=== PATIENT | female | born 2000 | race Caucasian/White ===

== ENCOUNTER 2019-11-25 20:30 | Emergency (ER) | payer OTHER, SELFPAY ==
[2019-11-25 20:32] VITALS: BP 156/102; PULSE 102; PULSE 97; RESP 18; TEMP 36.7; O2SAT 98; O2SAT 99; BMI 43.5
--- NOTE | 2019-11-25 20:37 | RAD_ITS ---
STUDY: X-RAY - LEFT KNEE REASON FOR EXAM: Female, 19 years old. FALL, PAIN TECHNIQUE: 4 view(s) of the knee. COMPARISON: None. FINDINGS: Normal visualized distal femur. Normal visualized proximal tibia and fibula. Normal proximal tibiofibular articulation. Normal medial femorotibial compartment. Normal lateral femorotibial compartment. Normal patellofemoral articulation. The soft tissue structures are unremarkable. RAD/Knee 4 or More Views IMPRESSION: Normal x-ray examination of the knee. Electronically Signed: Presley Phillips MD at 21:14 EDT , Service support ,
--- NOTE | 2019-11-25 20:44 | ED.VISSUMM ---
- ER Visit Summary Date of Service: 11/25/19 Chief Complaint: Left knee pain History of Present Illness: The patient is a 19 F van past medical history. Patient states she was playing badminton with her father in the yard. Slipped on the wet grass and may have stepped in a hole twisting her left knee think she may have hyperextended it. Complaining of pain primarily in the posterior aspect the left knee. Denies any hip, ankle or foot pain. No numbness. No prior knee history or surgery. Physical Examination: Young female complaining of pain. Vital signs are stable and afebrile. H EENT exam unremarkable. Neck nontender. Lungs clear to auscultation bilaterally. Heart regular rhythm no murmur. Abdomen soft nontender. Extremities moves all 4. Left hip, ankle and foot are nontender neurovascular intact with normal DP pulse. Normal dorsi plantar flexion. Normal touch sensation left foot. Left knee there is no swelling. No bony deformity. She has pain primarily in the proximal aspect of the left calf and the popliteal fossa. There is no gross bony deformity. Again left foot is neurovascular intact. Both upper extremities right lower extremity unremarkable. Back nontender. Neurologic exam normal. She has pain with flexion extension of left knee actively and passively. Test Results: Left knee x-ray no acute abnormality 4 views read both myself and radiologist. No acute bony abnormality. No effusion. Emergency Department Course and Treatment: Patient slipped on the wet grass and hyperextended her left knee. Has pain primarily in the posterior aspect of the popliteal fossa and the proximal calf. X-ray being obtained. She did not waiting for pain at this time. Repeat exam patient doing well at 2155. Knee was reexamined and unchanged. Exam is consistent with knee sprain. Treatment Plan: Ice and elevate. Tylenol and Motrin for pain and inflammation. Follow-up with orthopedics if not improving. Disposition: Discharge Impression: Acute left knee sprain This note was generated with [employer] dictation software. It may contain incorrect words, spelling, and punctuation that were not noted in review of the chart prior to signing ED Disposition - Plan for ED Patient: Referrals: NOT,DEFINED [NON-STAFF] -
--- NOTE | 2019-11-25 21:57 | ED.DEP ---
ED Disposition - Plan for ED Patient: Disposition: Home or Assisted Living Instructions: ED Sprain Knee Referrals: Sebastian Boyd MD [STAFF PHYSICIAN] - 1 Week if not improving Additional Instructions: Ice and elevate your knee to decrease pain and swelling. Increase activity as tolerated. Tylenol for pain and Motrin for pain and swelling. Follow-up with the orthopedic Dr. Ori Boyd if not improving. Your x-rays are normal tonight. Your exam and history are consistent with a sprained knee.
[2019-11-25 22:13] VITALS: BP 123/102; PULSE 75; RESP 16; O2SAT 99
== END 2019-11-25 22:14 | disposition home or self-care (01) ==
PROVIDERS: Emergency Provider Emergency Medicine
DX: S83.92XA Sprain of unspecified site of left knee, initial encounter (principal); X50.1XXA Overexertion from prolonged static or awkward postures, initial encounter; Y93.89 Activity, other specified; Y92.007 Garden or yard of unspecified non-institutional (private) residence as the place of occurrence of the external cause; Y99.8 Other external cause status
CPT/HCPCS: 73564; 99282

== ENCOUNTER 2019-12-03 15:54 | Emergency (ER) | payer OTHER, SELFPAY ==
[2019-12-03 15:55] VITALS: BP 153/77; PULSE 96; RESP 17; TEMP 36.7; O2SAT 95; BMI 44.4
--- NOTE | 2019-12-03 16:32 | ED.DCSUM_ITS ---
History of Present Illness Chief Complaint: Lower Extremity Injury Informant: Patient Onset: Days - 8 Context: Sudden Onset Timing: Continuous Narrative: Patient is a 19-year-old female presenting with positive DVT on ultrasound. Patient sustained a knee injury 1 week ago while playing badminton. She twisted her knee. She had persistent pain since. Patient followed up with orthopedics dilated and noncompressible PT V on the left. Patient was sent to the emergency room to get started anticoagulation she currently does not have PCP. Patient normally receives her care through [facility] she is a caution however she is currently home to secondary to COVID-19 in college is being close. Patient denies any associated shortness of breath or difficulty breathing. She denies any history of clotting or bleeding disorders. She has any family history of any either. Patient states she is had persistent left knee pain as well as pain over the lateral aspect of her left calf as well. She has associated swelling of the calf. Patient denies any other complaints at this time. She does not take any medications on a daily basis including control. Past Medical History - Allergies and Home Meds Allergies/Adverse Reactions: Allergies No Known Allergies Allergy (Verified 12/03/19 15:55) Primary Care Physician: Joy Louis DO [NON-STAFF] - Smoking Status: Never smoker Review of Systems General: Denies: Chills, Fever, Sweats Eyes: Denies: Visual changes - bilaterally, Diplopia ENT: Denies: Rhinorrhea, Sore throat Cardiovascular: Denies: Chest pain, Palpitations Respiratory: Denies: Dyspnea, Cough, Dyspnea on exertion Gastrointestinal: Denies: Abdominal pain, Nausea, Vomiting, Diarrhea, Melena, Hematochezia Genitourinary: Denies: Dysuria, Hematuria, Frequency Musculoskeletal: Reports: Swelling - left calf , Extremity Pain - left. Denies: Back pain Skin: Denies: Rash, Wounds Neurological: Denies: Headache, Weakness, Numbness Physical Exam Vital Signs/Narrative: Vital Signs Temp Pulse Resp BP Pulse Ox 12/03/19 15:55 98.1 F 96 17 153/77 H 95 Inital Vital Signs reviewed: Yes General: Well nourished, Well developed, No Acute Distress Head: Normocephalic, Atraumatic Eyes: Perrl, EOMI ENT: Moist mucous membranes, No rhinorrhea Neck: Supple, Nontender Cardiovascular: Regular rate, Regular rhythm, No murmurs Respiratory: No distress, CTA bilaterally, Chest nontender Abdomen: Soft, Nontender, Nondistended, Normal bowel sounds Back: Nontender, Normal Inspection Extremities: Tenderness, Edema, Calf Tenderness - left lateral Skin: Normal color, No rash Neurological: Alert, Oriented x3, Cranial nerves II-XII grossly intact, Normal Strength, Normal Sensation Psychological: Normal affect, Normal Mood Diagnostic/Tx/Re-eval - Medical Decision Making Patient is evaluated for positive DVT on outpatient ultrasound. She has had pain and swelling after an injury playing [employer] for the past week. Her pain does coincide with the area of her DVT. Patient be started on Eliquis. She does not have any signs or symptoms consistent with PE. Patient is counseled on signs and symptoms of PE and to return the emergency room should she develop any. She is hemodynamically stable in the emergency room. She is not hypoxic or tachycardic. As patient does not have a PCP I did speak with Dr. louis who will arrange follow-up of the next few days incoordinated her anticoagulation care. Patient is counseled on signs and symptoms requiring return to the emergency room. Patient verbalizes agreement and understand this plan. Patient discharged home in stable and improved condition. ED Disposition - Plan for ED Patient: Disposition: Home or Assisted Living Diagnosis: DVT (deep venous thrombosis) Instructions: ED DVT Prescriptions: Apixaban [Eliquis] 5 mg PO BID #70 tab Transmission Status: Received by [id number] Referrals: Joy Louis DO [NON-STAFF] - Additional Instructions: Dr Louis will call you today or tomorrow to arrange follow up. Do not take Ibuprofen while on a blood thinner. Tylenol safe to take. If you fall and hit your head, develop chest pain, shortness of breath or difficulty breathing or other severe symptoms please return to the emergency room immediately.
[2019-12-03] MEDS: APIXABAN 5 MG TABLET 10 MG PO (17:10)
== END 2019-12-03 17:18 | disposition home or self-care (01) ==
PROVIDERS: Emergency Provider Emergency Medicine
DX: I82.4Z2 Acute embolism and thrombosis of unspecified deep veins of left distal lower extremity (principal)
CPT/HCPCS: 99283

== ENCOUNTER → 2019-12-03 | Outpatient (CLI) | payer OTHER, SELFPAY ==
[2019-11-25 20:32] VITALS: BMI 43.5
--- NOTE | 2019-12-03 14:48 | VDLE_ITS ---
Reason For Study: pain Procedure LEFT Exam performed in department. GSV is normal. The exam was abbreviated due to the COVID 19 CFV is compressible, spontaneous, phasic, protocol. competent, and demonstrates normal The exam was diagnostic. augmentation. A preliminary report was called and/or faxed FV is compressible, spontaneous, phasic, to Lupe Montez NP-Amalia. competent and demonstrates normal augmentation. POP V is compressible, spontaneous, phasic, competent and demonstrates normal augmentation. T/P Trunk is compressible. LT PerV is compressible. PTV are dilated and noncompressible. Interpretation Summary Acute deep vein thrombosis is noted in the left posterior tibial vein. The remainder of the left lower extremity deep venous system is patent and compressible. Valvular competence appears intact within the proximal deep venous system on the left . The left great saphenous vein appears patent and compressible segmentally. Ordering Physician: Lupe Montez Performed By: Nithin Souza RVT
== END | disposition home or self-care (01) ==
LOC: CVS 14:46
PROVIDERS: Referring Provider Registered Nurse; Visit Provider Registered Nurse
DX: M79.662 Pain in left lower leg (principal)
CPT/HCPCS: 93971

== ENCOUNTER → 2020-03-07 | Outpatient (CLI) | payer OTHER, SELFPAY ==
--- NOTE | 2020-03-07 10:42 | VDLE_ITS ---
Reason For Study: Leg swelling Procedure LEFT Exam performed in department. GSV is normal. Compared to 12/03/2019. CFV is compressible, spontaneous, phasic, A preliminary report was called and/or faxed competent, and demonstrates normal to Fast. augmentation. FV is compressible, spontaneous, phasic, competent and demonstrates normal augmentation. POP V is compressible, spontaneous, phasic, competent and demonstrates normal augmentation. T/P Trunk is compressible. PTV is compressible. LT PerV is compressible. Interpretation Summary Deep veins of the left lower extremity are patent and compressible segmentally. There is no evidence of left lower extremity deep vein thrombosis. Valvular competence appears intact within the proximal deep venous system on the left . The left great saphenous vein appears patent and compressible segmentally. Ordering Physician: Joy Michel Referring Physician: Joy Michel Performed By: Adriana Melo RVT and Student
== END | disposition home or self-care (01) ==
PROVIDERS: PCP Internal Medicine; Referring Provider Internal Medicine; Visit Provider Internal Medicine
DX: M79.89 Other specified soft tissue disorders (principal)
CPT/HCPCS: 93971

== ENCOUNTER 2022-08-20 09:22 | Day surgery (SDC) | payer OTHER, SELFPAY ==
--- NOTE | 2022-08-10 12:32 | HP.PCM_ITS ---
History and Physical Date of Admission: 08/20/22 HPI: The patient is a 22 year old female presenting for pre-operative visit. She is scheduled for laparoscopic left ovarian cystectomy, for left ovarian cyst or paratubal cyst on 08/20/2021. Procedure discussed along with risks, benefits and complications. Other alternatives discussed for management. Consent form signed? Yes. ? ? PAST MEDICAL HISTORY PAST MEDICAL HISTORY Diagnosis Date ? History of blood clots ? ? in left leg after knee injury and surgery ? ? PAST SURGICAL HISTORY PAST SURGICAL HISTORY Procedure Laterality Date ? ANT VESICOURETHROPEXY/URETHROPEXY SMPL ? 08/15/2000 ? [facility] ? KNEE SURGERY HX Left 09/2020 ? acl, lcl, hamstring repair ? MIRENA IUD ? 04/16/2022 ? ? ? CURRENT MEDICATIONS Current Outpatient Medications Medication Sig Dispense Refill ? SOOLANTRA 1 % APPLY A THIN LAYER TO THE FULL FACE TWICE A DAY. ? ? ? levonorgestrel (MIRENA) 20 mcg/24 hours (7 yrs) 52 mg IUD 1 Each by INTRAUTERINE route as directed. 1 Each 0 ? CENTRUM WOMEN MULTIVITAMIN GUMMY ? No current facility-administered medications for this visit. ? ? ALLERGIES: Patient has no known allergies. ? PERSONAL HISTORY: SOCIAL HISTORY Social History ? Tobacco Use ? Smoking status: Never ? Smokeless tobacco: Never Vaping Use ? Vaping Use: Never used Substance Use Topics ? Alcohol use: Yes ? Drug use: Never ? FAMILY HISTORY: FAMILY HISTORY FAMILY HISTORY Problem Relation Age of Onset ? other (pcos) Mother ? ? ? REVIEW OF SYMPTOMS: GENERAL: denies fevers or chills ENDOCRINOLOGY: has not been on steroids Cardiology : denies palpitations or chest pain Respiratory: denies SOB or cough Hematology: denies history of prolonged bleeding or easy bruising or VTE Allergy: Denies history of personal or family history of allergy to anesthesia ? PHYSICAL EXAMINATION: ? VITALS: Blood pressure 124/82, height 5' 7.25 (1.708 m), weight 298 lb (135.2 kg), last menstrual period 03/05/2022. ? GENERAL: The patient is well nourished, well hydrated in no acute distress. , The patient is oriented to time, place, and person. NECK: Supple. No lynphadenopathy, normal thyroid, no thyromegaly. LUNGS: Clear to auscultation bilaterally. no wheezes, rhonchi or rales HEART: Regular rate and rhythm, Normal heart sounds, and No murmurs or gallops ? IMPRESSION: left ovarian vs paratubal cyst ? PLAN: The risks/benefits/alternatives and personal involved for the planned left ovarian cystectomy, possible oophorectomy were reviewed with the patient. Her questions were answered to her satisfaction and she desires to proceed. Consent was signed. I reviewed with her postop instructions and expectations. ? ? I have reviewed and updated past medical and surgical history, medications and allergies Assessment & Plan Assessment/Plan (1) Left ovarian cyst:
[2022-08-20] VITALS (10 sets, daily range): BP systolic 103–132; BP diastolic 58–83; PULSE 72–104; RESP 16–18; TEMP 36.4–36.7; O2SAT 93–100; BMI 48.2
[2022-08-20 10:04] LABS: Internal QC Validated? YES +Cl - CLEAR BKGD; Pregnancy, Urine Negative Negative
[2022-08-20 10:12] LABS: Hematocrit 38.9 % (37-47); Hemoglobin 12.4 g/dL (12.0-15.0); Mean Corp Hgb Conc 31.9 g/dL (32-36); Mean Corpuscular Hgb 25.6 pg (27.0-32.0); Mean Corpuscular Volume 80.2 fL (81-99); Mean Platelet Vol. 11.1 fl (6.2-12.0); Platelet Count 365 K/mm3 (150-450); RBC Distribution Width CV 14.9 % (11.6-14.6); RBC Distribution Width SD 43.2 fl (35.1-43.9); Red Blood Count 4.85 M/mm3 (4.2-5.4); White Blood Count 7.8 K/mm3 (4.4-11.0)
[2022-08-20] MEDS: Lactated Ringers 1,000 ML 15 ML IV (10:19)
[2022-08-20] MEDS: Enoxaparin 40 MG/0.4 ML Syringe SC (10:20)
[2022-08-20] MEDS: Celecoxib 200 MG Capsule 400 MG PO (10:20)
[2022-08-20] MEDS: Acetaminophen 500 MG Tablet 1000 MG PO (10:20)
[2022-08-20] MEDS: Gabapentin 400 MG Capsule PO (10:32)
[2022-08-20 10:36] LABS: Glucose 96 mg/dL (74-106)
--- NOTE | 2022-08-20 11:05 | OV_PTH ---
PATIENT: CHELSEY MONACO LOC: [facility] – [place] U#:[id number] AGE/SX: 22/F ROOM: RE08/20/[address]: Dr. Eladia Davies MD : 2000 BED: DIS: 08/20/2022 SPEC #: [id number] RECD: 08/20/22 13:52 STATUS: MARIN RELynette #: [id number] ELLEN: 08/20/22 11:[address]: Eladia Davies DEPT: SURGICAL PATHOLOGY RECD BY: Kimberli Colon ENTERED: 08/23/22 10:35 SP TYPE: OVARY OTHR DR: No Primary Care Phys Tissues: OVARIAN CYST Procedures: Surgery Specimen Level IV HEADER OPERATION: Laparoscopic ovarian cystectomy PRE-OP DIAGNOSIS: Left ovarian cyst TISSUE SUBMITTED: Left ovarian cyst MICROSCOPIC DIAGNOSIS Left ovarian cyst, cystectomy: Consistent with paratubal cyst. See comment. CARMEN:stefan 08/24/2022 COMMENT Ovarian tissue is not identified. Case has been reviewed in consultation with Dr. Leahy who concurs with the above diagnosis. IDC:AM MICROSCOPIC DESCRIPTION Slides are reviewed. GROSS DESCRIPTION Received in fixative is one container labeled with the patient's name and designated left ovarian cyst. The specimen consists of multiple pieces of turk, congested soft tissue consisting of a portion of cyst wall measuring in aggregate 11 x 6 x 1 cm. The outer cyst wall appears smooth. The inner cyst wall is ragged and congested. The cyst wall measures 0.1 to 1 cm in thickness. Apparel Merchandiser sections are submitted in four cassettes. / SJ:rg 08/23/2022 TC:5 CPT: 55356
--- NOTE | 2022-08-20 12:26 | DCINST_ITS ---
Discharge Instructions Diet Discharge Diet: Light diet - advance as tolerated Activity Discharge Activity: May Drive (in 2-3 days when not taking pain medication) and May Shower Return to work on:: 08/23/22 May resume sexual activity in: 1 week Dressing / Incision Call your doctor if your incision/area has: Continuous Slow Oozing, Sudden Increased Bleeding and Foul Smelling Discharge Call your doctor if you observe: Fever of 101 or Higher Cleanse incision/area with: Soap & Water (Your incisions have skin glue, it can get wet. Leave it on for at least 10 days or until it falls off) Follow Up Care Test Results: Test results from this visit will be discussed in further detail at your follow- up appointment, if applicable. Discharge Plan Admission Primary Reason for Your Visit: Left ovarian cystectomy Attending Provider: Eladia Davies Primary Care Provider: Samantha Bridges Primary Discharge Orders/Prescriptions Prescriptions: New ibuprofen [ibuprofen] 600 MG tablet 600 mg PO Q6H PRN (Reason: Pain) Qty: 60 1RF oxycodone 5 MG tablet 5 mg PO Q6H PRN PRN (Reason: severe pain) 3 Days Qty: 6 0RF Continued sulfacetamide sodium (acne) 10 % suspension 1 applic TOPICAL BID Label Comments: APPLY A THIN LAYER TO THE FULL FACE IN THE MORNING AND THE T-ZONE IN THE EVENINGS Probiotic 10 billion cell Capsule 10,000 mmu cells PO DAILY ivermectin [Soolantra] 1 % cream 1 applic TOPICAL BID Label Comments: APPLY A THIN LAYER TO THE FULL FACE TWICE A DAY. Mirena 20 mcg/24 hours (8 yrs) 52 mg Intrauterine Device 20 mcg INTRAUTERINE DAILY Referrals / Follow Up: Care Physician,No Primary [Primary Care Provider] - Disposition Disposition (needs filled in before D/C Order can be placed): Home, Self Care
[2022-08-20] MEDS: Bupivacaine Mpf 0.5% 30 ML VIAL (13:30)
--- NOTE | 2022-08-20 13:43 | OP.PCM_ITS ---
Problems Associated Problem List Diagnoses (1) Postoperative pain: Report of Operation Date of Procedure: 08/20/22 Pre-Operative Diagnosis: left ovarian cyst Post-Operative Diagnosis: same Surgery/Procedure Performed:: Laparoscopic left ovarian cystectomy Description of Surgical Findings:: Enlarged left simple cyst Surgeon: Eladia Davies vehicle service attendant: Jes Wright Type of Anesthesia: General Anesthesiologist: Beto Delarosa Special Medications: none Specimen's removed: left ovarian cyst Drains: none Estimated Blood Loss (mL): 10 Fluids Replaced: 1500 Description of Procedure: The patient was taken to the operating room where she was prepped and draped in the dorsolithotomy position. A weighted speculum was placed in the vagina and the anterior lip of the cervix was grasped with a tenaculum. The Conn cannula uterine manipulator was placed and the remainder of the instruments were removed from the vagina. Attention was turned to the abdomen. All port sites were infiltrated with 0.5% Marcaine before skin incisions were made. A 5 mm intraumbilical incision was made. The anterior abdominal wall was tented up with 2 towel clamps while a 5 mm blade less trocar and sleeve was directly inserted with the Visiport. Intraperitoneal placement was confirmed with the laparoscope. The pneumoperitoneum was created and the underlying abdominal contents were intact. The patient was placed in Trendelenburg. 5mm right and left lower quadrant ports were placed under direct visualization lateral to the inferior epigastric vessels. The bowel was swept away and the above findings were noted. The large left ovarian cyst was noted. An incision was made on the antimesenteric portion and 900 cc of straw-colored fluid was removed. When the cyst was deflated the wall was stretched. We used the laparoscopic instruments to try to remove as much of the wall from the ovarian tissue as possible. Care was taken to leave the fallopian tube which was very stretched out over the cyst intact. We dissected off as much of the cyst wall from the underlying tissue as possible. We then used the LigaSure to remove some of the cyst wall from the remaining portion of the ovary. Suction financial sales professional was used. There was no active bleeding. Some fibrillar was placed in the left ovary ovarian wall. The cyst was placed in a 10 mm laparoscopic bag that was placed through the umbilical port after stretching the port site. The operative site was reexamined and hemostatic. The lateral ports were removed under direct visualization and no active bleeding was noted. The pneumoperitoneum was released. The skin incisions were closed with Monocryl suture in a subcuticular fashion and skin glue by Dr. Wright. The vaginal instruments were removed and the vaginal sweep was completed by me. The procedure was performed by me with assistance other than as dictated above. All sponge and needle counts were correct and the patient was taken to the recovery room in stable condition. Dr. Wright provided camera guidance and tissue manipulation during the surgery. Uterus bilateral fallopian tubes and right ovary were normal. Remainder left ovary was normal. No endometriosis was noted. Grafts/Implants Used: none Procedure Start Time: 12:43 Procedure Stop Time: 13:44 Admit VTE Documentation VTE Present on Admission: No VTE Mechan Device Prophylaxis: SCD's VTE Pharm Prophylaxis ordered?: No Reason prophylaxis not ordered:: Procedure Not Indicated
[2022-08-20] MEDS: Lactated Ringers 1,000 ML 75 ML IV (15:15)
== END 2022-08-20 17:49 | disposition home or self-care (01) ==
LOC: SDC 09:23 → AC 09:24
PROVIDERS: Referring Provider Obstetrics & Gynecology; Visit Provider Obstetrics & Gynecology
PROC: (CPT 58662; principal; 2022-08-20 10:50)
DX: N83.202 Unspecified ovarian cyst, left side (principal); K21.9 Gastro-esophageal reflux disease without esophagitis; Z86.718 Personal history of other venous thrombosis and embolism; Z79.899 Other long term (current) drug therapy
CPT/HCPCS: 58662; 00840; 81025; 82947; 85027; 86850; 86900; 86901; 88305; J7120; J2405